=== PATIENT | female | born 1940 | race Two or more races ===

== ENCOUNTER 2018-06-04 17:26 | Emergency (ER) | payer MEDICARE, OTHER ==
[~2018-06-04] VITALS: Ht 147.3 cm; Wt 50.8 kg
[2018-06-04 19:03] LABS: Basophils # (auto) 0 uL; Basophils % (auto) 0.4 % (0.0-2.0); Eosinophils # (auto) 0.1 uL; Eosinophils % (auto) 1.1 % (0.0-7.0); Hematocrit 35.6 % (36.0-46.0); Hemoglobin 11.9 g/dL (12.2-16.2); Lymphocytes # (auto) 1.7 uL; Lymphocytes % (auto) 29.7 % (10.0-50.0); Mean Corpuscular Hemoglobin 30.9 pg (28.0-32.0); Mean Corpuscular Hgb Conc. 33.4 g/dL (32.0-36.0); Mean Corpuscular Volume 92.7 fL (80.0-100.0); Monocytes # (auto) 0.4 uL; Monocytes % (auto) 7.5 % (0.0-12.0); Neutrophils # (auto) 3.6 uL; Neutrophils % (auto) 61.3 % (37.0-80.0); Nucleated Red Blood Cells % 0.1 %; Platelet Count (auto) 180 10^3/uL (140-450); Red Blood Cells 3.84 10^6/uL (4.0-5.20); White Blood Cell 5.8 10^3/uL (4.4-10.8)
[2018-06-04 19:18] LABS: Alanine Aminotransferase 23 U/L (13-56); Albumin 3.5 g/dL (3.4-5.0); Anion Gap 8 (5-15); Aspartate Aminotransferase 34 U/L (15-37); BUN/Creatinine Ratio 22.1; Blood Urea Nitrogen 17 mg/dL (7-18); Calcium 9.3 mg/dL (8.5-10.1); Carbon Dioxide 25 mmol/L (21-32); Chloride 104 mmol/L (98-107); GFR African American 93 mL/min; GFR Non-African American 77 mL/min; Glucose 117 mg/dL (74-106); Potassium 4.7 mmol/L (3.5-5.1); Sodium 137 mmol/L (136-145)
[2018-06-04 19:24] LABS: Alkaline Phosphatase 115 U/L (45-117); Bilirubin, Total 0.4 mg/dL (0.2-1.0)
[2018-06-04 21:25] VITALS: BP 113/75
== END 2018-06-04 21:40 | disposition home or self-care (01) ==
LOC: ER 17:26
DX: M19.012 Primary osteoarthritis, left shoulder (principal); E07.9 Disorder of thyroid, unspecified
CPT/HCPCS: 36415; 71046; 73030; 80053; 83880; 84484; 85025; 93005

== ENCOUNTER → 2018-12-03 | Outpatient (CLI) | payer MEDICARE, OTHER | END | disposition home or self-care (01) | LOC: Rad HDHVI 15:56 | PROVIDERS: ATTEND Internal Medicine Cardiovascular Disease | DX: I08.3 Combined rheumatic disorders of mitral, aortic and tricuspid valves (principal) | CPT/HCPCS: 93306 ==

== ENCOUNTER → 2018-12-06 | Outpatient (CLI) | payer MEDICARE, OTHER ==
[~2018-12-06] VITALS: Ht 147.3 cm; Wt 48.5 kg
== END | disposition home or self-care (01) ==
LOC: Rad HDHVI 08:47
PROVIDERS: ATTEND Internal Medicine Cardiovascular Disease
DX: Z01.810 Encounter for preprocedural cardiovascular examination (principal); I10 Essential (primary) hypertension; E03.9 Hypothyroidism, unspecified
CPT/HCPCS: 78452; 93017; 96374; A9500

== ENCOUNTER 2018-12-26 11:41 | Inpatient (IN) | payer MEDICARE, OTHER ==
[2018-12-24 13:00] LABS: INR 0.9 (0.9-1.15); Partial Thromboplastin Time 21.3 sec (23.78-33.04); Prothrombin Time 9.7 sec (9.27-12.13)
[2018-12-24 13:07] LABS: Urine Bacteria NONE SEEN /hpf (None Seen); Urine Blood Negative /uL (Negative); Urine Mucus FEW (None Seen); Urine Specific Gravity 1.018 (1.001-1.035); Urine WBC 1 /hpf (0 - 5)
[2018-12-24 13:17] LABS: Potassium 4.2 mmol/L (3.5-5.1)
[2018-12-24 13:28] LABS: Albumin 3.4 g/dL (3.4-5.0); BUN/Creatinine Ratio 22.8; Bilirubin, Total 0.4 mg/dL (0.2-1.0); Calcium 9.4 mg/dL (8.5-10.1); Total Protein 8.3 g/dL (6.4-8.2)
[2018-12-25 13:51] LABS: Basophils # (auto) 0 uL; Basophils % (auto) 0.6 % (0.0-2.0); Eosinophils # (auto) 0.2 uL; Eosinophils % (auto) 3.1 % (0.0-7.0); Hematocrit 37.7 % (36.0-46.0); Hemoglobin 12.5 g/dL (12.2-16.2); Lymphocytes # (auto) 1.7 uL; Lymphocytes % (auto) 23.4 % (10.0-50.0); Mean Corpuscular Hemoglobin 29.9 pg (28.0-32.0); Mean Corpuscular Hgb Conc. 33.1 g/dL (32.0-36.0); Mean Corpuscular Volume 90.4 fL (80.0-100.0); Monocytes # (auto) 0.5 uL; Monocytes % (auto) 7.4 % (0.0-12.0); Neutrophils # (auto) 4.8 uL; Neutrophils % (auto) 65.5 % (37.0-80.0); Nucleated Red Blood Cells % 0.1 %; Platelet Count (auto) 215 10^3/uL (140-450); Red Blood Cells 4.18 10^6/uL (4.0-5.20); Red Cell Distribution Width 14.3 % (11.8-14.3); White Blood Cell 7.4 10^3/uL (4.4-10.8)
[~2018-12-26] VITALS: Ht 149.9 cm; Wt 57.9 kg
[~2018-12-26 11:41] MED LIST: LEVO75TA6 PO; RITU1INJ SC
[2018-12-26] MEDS ORDERED: ceFAZolin 1GM/50ML 50 ML IV ONE (13:26)
[2018-12-26] MEDS ORDERED: LIDOCAINE W/ EPINEPHRINE 1% 20ML VIAL ONE (18:17)
[2018-12-26] MEDS ORDERED: SUCCINYLCHOLINE CHLORIDE 20 MG/ML 10ML VIAL IV ONE (18:18)
[2018-12-26] MEDS ORDERED: MIDAZOLAM HCL 1MG/1ML-2 ML VIAL ONE (18:26)
[2018-12-26] MEDS ORDERED: fentaNYL CITRATE 100 MCG/2 ML VL ONE (18:26)
[2018-12-26] MEDS ORDERED: SODIUM CHLORIDE LOCK 10 ML ONE (18:27)
[2018-12-26] MEDS ORDERED: ROCURONIUM 10MG/ML 10ML VIAL IV ONE (18:27)
[2018-12-26] MEDS ORDERED: ONDANSETRON HCL 4 MG/2 ML VIAL ONE (18:27)
[2018-12-26] MEDS ORDERED: MEPERIDINE HCL (50 MG/ML) 1 ML VIAL ONE (18:27)
[2018-12-26] MEDS ORDERED: KETOROLAC TROMETH 30 MG/ML 1ML VIAL IV ONE (19:00)
[2018-12-26] MEDS ORDERED: METOCLOPRAMIDE HCL 5MG/ml INJ 2ml VIAL IV ONE (19:00)
[2018-12-26] MEDS ORDERED: NEOSTIGMINE 1 MG/ML INJ (10mg/10ML VIAL) ONE (19:09)
[2018-12-26] MEDS ORDERED: KETOROLAC TROMETH 60MG/2ML VIAL IM ONE (19:09)
[2018-12-26] MEDS ORDERED: GLYCOPYRROLATE 0.2 MG/ML 1ML VIAL ONE (19:09)
[2018-12-26] MEDS ORDERED: HYDROmorphone HCL 2 MG/ML VL IV PRN (19:30)
[2018-12-26] MEDS ORDERED: HYDROcodone-ACET 5/325MG TAB PO PRN (20:45)
[2018-12-26] MEDS ORDERED: NITROGLYCERIN 0.4 MG SL TAB SL PRN (20:45)
[2018-12-26] MEDS ORDERED: MORPHINE SULF INJ 2 MG/ML SYRINGE 1ML IV PRN (20:45)
[2018-12-26] MEDS ORDERED: ACETAMINOPHEN 500 MG TAB PO PRN (20:45)
[2018-12-26] MEDS ORDERED: IPRATROPIUM BROM 0.5 MG/2.5ML INH SOL NEB PRN (20:45)
[2018-12-26] MEDS ORDERED: ONDANSETRON HCL 4 MG/2 ML VIAL IV PRN (20:45)
[2018-12-26] MEDS ORDERED: ALBUTEROL SULF 2.5 MG/0.5ML(0.5%) NEB SOLN NEB PRN (20:45)
[2018-12-26] MEDS ORDERED: ceFAZolin 1GM/50ML 50 ML IV SCH ×2 (22:00)
--- NOTE | 2018-12-26 22:04 | NUR ---
Post Op Admit Note JOHNNA ABREU admitted to Telemetry/MS unit as a direct admit post op s/p Laparoscopic Cholecystectomy. Patient oriented to Jef Kothari, primary RN, unit, room, bed, and unit policies regarding patient care and visiting hours. Patient weighed by bedscale and encouraged to call if they need something. All questions and concerns addressed, patient verbalized understanding.
[2018-12-26 22:10] VITALS: BP 117/55
[2018-12-26] MEDS: D5W/SOD CHL 0.45%/KCL 20MEQ 1,000 ML IV SCH (22:30)
[2018-12-26 23:51] VITALS: BP 117/55
[2018-12-27] MEDS: MORPHINE SULF INJ 2 MG/ML SYRINGE 1ML IV PRN ×6 (00:01→22:27)
[2018-12-27] MEDS: ceFAZolin 1GM/50ML 50 ML IV SCH ×2 (03:08→10:32)
[2018-12-27 05:02] VITALS: BP 100/50
[2018-12-27 06:27] LABS: Basophils # (auto) 0 uL; Basophils % (auto) 0.3 % (0.0-2.0); Eosinophils # (auto) 0 uL; Eosinophils % (auto) 0.6 % (0.0-7.0); Hematocrit 30.6 % (36.0-46.0); Hemoglobin 10.2 g/dL (12.2-16.2); Lymphocytes # (auto) 0.8 uL; Lymphocytes % (auto) 10.9 % (10.0-50.0); Mean Corpuscular Hemoglobin 30.4 pg (28.0-32.0); Mean Corpuscular Hgb Conc. 33.3 g/dL (32.0-36.0); Mean Corpuscular Volume 91.4 fL (80.0-100.0); Monocytes # (auto) 0.5 uL; Monocytes % (auto) 7.2 % (0.0-12.0); Neutrophils # (auto) 5.7 uL; Platelet Count (auto) 154 10^3/uL (140-450); Red Blood Cells 3.35 10^6/uL (4.0-5.20); Red Cell Distribution Width 14.7 % (11.8-14.3); White Blood Cell 7.1 10^3/uL (4.4-10.8)
[2018-12-27 06:42] LABS: BUN/Creatinine Ratio 13.7; Calcium 7.7 mg/dL (8.5-10.1); Potassium 3.4 mmol/L (3.5-5.1)
--- NOTE | 2018-12-27 07:28 | NUR ---
Patient still with severe post op pain, medication given. No urine output, bladder not distended, patient states no urge to urinate. Endorsed care to Suzy SCHMITT.
[2018-12-27 08:00] VITALS: BP 105/55
[2018-12-27] MEDS: D5W/SOD CHL 0.45%/KCL 20MEQ 1,000 ML IV SCH ×2 (08:50→22:10)
--- NOTE | 2018-12-27 08:52 | NUR ---
Respiratory note: ASSESSED PT FOR PRN TX PT WAS AWAKE AND ALERT ON A PHONE CALL, NO RESP DISTRESS NOTED. HR 71, RR 16, SPO2 91% ON ROOM AIR. BS ARE DIMINISHED. PT KNOWS TO HAVE RT PAGED IF TX IS NEEDED.
--- NOTE | 2018-12-27 11:00 | NUR ---
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
[2018-12-27] MEDS: ONDANSETRON HCL 4 MG/2 ML VIAL IV PRN ×2 (11:05→23:50)
[2018-12-27 11:12] LABS: Albumin 2.5 g/dL (3.4-5.0); Bilirubin, Direct 0.2 mg/dL (0-0.2)
[2018-12-27 11:15] LABS: Bilirubin, Total 0.6 mg/dL (0.2-1.0); Total Protein 6.5 g/dL (6.4-8.2)
[2018-12-27 11:19] LABS: Urine Bacteria FEW /hpf (None Seen); Urine Blood Negative /uL (Negative); Urine Mucus FEW (None Seen); Urine Specific Gravity 1.022 (1.001-1.035); Urine WBC 12 /hpf (0 - 5)
[2018-12-27 12:00] VITALS: BP 142/74
[2018-12-27] MEDS ORDERED: FLEET MINERAL OIL ENEMA 133 ML PR ONE (14:15)
--- NOTE | 2018-12-27 14:15 | NUR ---
IV insertion IV access obtained, via clean sterile technique by inserting 20 gauge catheter at after attempt(s). IV secured properly. No trauma to site. Patient tolerated well.
--- NOTE | 2018-12-27 15:00 | NUR ---
Patient walks with PT, tolerated well.
[2018-12-27 17:00] VITALS: BP 134/61
--- NOTE | 2018-12-27 19:20 | NUR ---
Opening Shift Note Assumed care of patient, awake and alert. Bed side report with day RN Suzy. family member at bedside. No S/S of distress/SOB or pain. Instructed on POC and to call for assist PRN, will continue to monitor for changes Q1hr and PRN. bed locked and in lowest position, call light within reach. Informed to use call light if needs assistance with going to the restroom.
[2018-12-27 21:29] VITALS: BP 154/82
--- NOTE | 2018-12-27 22:00 | NUR ---
Respiratory note: PT ASSESSED FOR PRN MED NEB TX. PT FOUND ON R/A WITH SPO2 OF 80%. PT PLACED ON 3L N/C. SPO2 NOW 94%. PT DENIES ANY SOB AT THIS TIME. B/S ARE CLEAR/DIM. PT INFORMED TO KEEP 02 ON AND TO HAVE RT PAGED IF NEEDED.
[2018-12-28 05:22] VITALS: BP 133/75
[2018-12-28 05:24] VITALS: BP 126/63
[2018-12-28 06:41] LABS: Basophils # (auto) 0 uL; Basophils % (auto) 0.3 % (0.0-2.0); Eosinophils # (auto) 0.1 uL; Eosinophils % (auto) 0.9 % (0.0-7.0); Hematocrit 35.5 % (36.0-46.0); Hemoglobin 11.5 g/dL (12.2-16.2); Lymphocytes # (auto) 0.8 uL; Lymphocytes % (auto) 13.8 % (10.0-50.0); Mean Corpuscular Hgb Conc. 32.4 g/dL (32.0-36.0); Mean Corpuscular Volume 92.6 fL (80.0-100.0); Monocytes # (auto) 0.4 uL; Monocytes % (auto) 6.4 % (0.0-12.0); Neutrophils # (auto) 4.6 uL; Neutrophils % (auto) 78.6 % (37.0-80.0); Platelet Count (auto) 180 10^3/uL (140-450); Red Blood Cells 3.83 10^6/uL (4.0-5.20); Red Cell Distribution Width 14.9 % (11.8-14.3); White Blood Cell 5.9 10^3/uL (4.4-10.8)
[2018-12-28 06:49] LABS: Albumin 2.7 g/dL (3.4-5.0); BUN/Creatinine Ratio 4.1; Calcium 8.2 mg/dL (8.5-10.1); Potassium 3.6 mmol/L (3.5-5.1)
[2018-12-28 06:51] LABS: Bilirubin, Total 1.2 mg/dL (0.2-1.0); Total Protein 7.2 g/dL (6.4-8.2)
--- NOTE | 2018-12-28 07:45 | NUR ---
OPENING SHIFT PATIENT IN BED RESTING. NO S/S OF DISTRESS, SOB, OR PAIN. RESPIRATIONS EVEN AND UNLABORED. 3 INCISIONS TO ABDOMEN WITH DRESSINGS CLEAN, DRY, AND INTACT. ABDOMINAL BINDER IN PLACE. DISCUSSED POC WITH PATIENT. PATIENT VERBALIZED UNDERSTANDING. BED IS IN LOWEST POSITION , SIDE RAILS UP X2, AND CALL LIGHT WITHIN REACH. WILL CONTINUE TO MONITOR Q1 HOUR AND PRN.
[2018-12-28 08:36] VITALS: BP 140/67
--- NOTE | 2018-12-28 10:45 | NUR ---
Respiratory note: PT ASSESSED FOR PRN MEDNEB TX. NO TX INDICATED AT THIS TIME. SPO2 92% ON RA HR 79 RR 18 B/S CLEAR/DIM. PT AWARE TO HAVE RT PAGED IF THEY BECOME SOB.
[2018-12-28 12:56] VITALS: BP 144/74
--- NOTE | 2018-12-28 13:18 | NUR ---
ORDER AND CLINICALS FAXED TO [facility]. START OF CARE WILL BE 24 TO 48 HOURS AFTER DISCHARGE. PHONE NUMBER IS [phone]
[2018-12-28] MEDS: D5W/SOD CHL 0.45%/KCL 20MEQ 1,000 ML IV SCH (14:30)
--- NOTE | 2018-12-28 16:37 | NUR ---
REFUSED VITALS PT REFUSED 1700 VITALS, LEISA SCHMITT AWARE.
[2018-12-28 16:51] VITALS: BP 140/67
--- NOTE | 2018-12-28 17:50 | NUR ---
DISCHARGE Discharge instructions given as ordered. Encourage to follow up with PCP as instructed. All questions and concerns addressed. Patient verbalized understanding. IV removed with catheter intact, pressure dressing applied. Patient taken to vehicle via wheelchair with all personal belongings, accompanied by staff and family member. No distress noted at time of departure.
== END 2018-12-28 17:50 | disposition home or self-care (01) | DRG 418 ==
LOC: SUR 11:41 → MERGE 22:04 → WEST WING 22:04 → TELE-WESTW 23:03 → WEST WING 12-27 02:28
PROVIDERS: ADMIT Surgery; ATTEND Internal Medicine
PROC: 0FT44ZZ Resection of Gallbladder, Percutaneous Endoscopic Approach (ICD-10-PCS; principal; 2018-12-26 18:26)
DX: K80.10 Calculus of gallbladder with chronic cholecystitis without obstruction (principal); E44.0 Moderate protein-calorie malnutrition; E03.9 Hypothyroidism, unspecified; E66.9 Obesity, unspecified; K82.8 Other specified diseases of gallbladder; M06.9 Rheumatoid arthritis, unspecified; Z68.25 Body mass index [BMI] 25.0-25.9, adult
CPT/HCPCS: 36415; 80048; 80053; 80061; 80076; 81001; 82247; 83036; 84439; 84443; 85025; 85610; 85730; 86850; 86900; 86901; 97163; A6257; G0378; J0330; J0690; J1885; J2250; J2405

== ENCOUNTER → 2019-02-18 | Outpatient (CLI) | payer BC, MEDICARE ==
[2019-02-18 12:44] LABS: Basophils # (auto) 0 uL; Basophils % (auto) 0.4 % (0.0-2.0); Eosinophils # (auto) 0.1 uL; Eosinophils % (auto) 2.2 % (0.0-7.0); Hematocrit 39.4 % (36.0-46.0); Hemoglobin 13.1 g/dL (12.2-16.2); Lymphocytes # (auto) 1.3 uL; Mean Corpuscular Hemoglobin 30.2 pg (28.0-32.0); Mean Corpuscular Hgb Conc. 33.2 g/dL (32.0-36.0); Mean Corpuscular Volume 91.1 fL (80.0-100.0); Monocytes # (auto) 0.4 uL; Monocytes % (auto) 8.8 % (0.0-12.0); Neutrophils # (auto) 2.8 uL; Neutrophils % (auto) 60.6 % (37.0-80.0); Nucleated Red Blood Cells % 0.1 %; Platelet Count (auto) 179 10^3/uL (140-450); Red Blood Cells 4.33 10^6/uL (4.0-5.20); Red Cell Distribution Width 13.9 % (11.8-14.3); White Blood Cell 4.6 10^3/uL (4.4-10.8)
[2019-02-18 12:52] LABS: Urine Blood Negative /uL (Negative); Urine Specific Gravity 1.011 (1.001-1.035)
[2019-02-18 12:57] LABS: Albumin 3.7 g/dL (3.4-5.0); Potassium 3.7 mmol/L (3.5-5.1)
[2019-02-18 13:04] LABS: BUN/Creatinine Ratio 28.4; Bilirubin, Total 0.5 mg/dL (0.2-1.0); Calcium 9.1 mg/dL (8.5-10.1)
[2019-02-18 13:07] LABS: Free T4 (Free Thyroxine) 1.08 ng/dL (0.89-1.76)
== END | disposition home or self-care (01) ==
LOC: LAB 08:05
PROVIDERS: ATTEND Internal Medicine Cardiovascular Disease
DX: E55.9 Vitamin D deficiency, unspecified (principal); E03.9 Hypothyroidism, unspecified; D51.9 Vitamin B12 deficiency anemia, unspecified; N39.0 Urinary tract infection, site not specified; Z79.899 Other long term (current) drug therapy
CPT/HCPCS: 36415; 80053; 80061; 81003; 82306; 82607; 83036; 84439; 84443; 85025

== ENCOUNTER → 2019-03-15 | Outpatient (CLI) | payer MEDICARE | END | disposition home or self-care (01) | LOC: LAB 11:25 | PROVIDERS: ATTEND Internal Medicine Cardiovascular Disease | DX: E03.9 Hypothyroidism, unspecified (principal) | CPT/HCPCS: 36415; 84439; 84443 ==

== ENCOUNTER → 2019-05-27 | Outpatient (CLI) | payer MEDICARE, BC ==
[~2019-05-27] MED LIST changes: +METO5TAB2 PO; +OMEP20TA PO; +PANC3600 PO; +PIO30T PO; +RANI150C11 PO
[2019-05-27 12:11] LABS: Urine Blood Negative /uL (Negative); Urine Specific Gravity 1.014 (1.001-1.035)
[2019-05-27 12:16] LABS: Hematocrit 37.7 % (36.0-46.0); Hemoglobin 12.7 g/dL (12.2-16.2); Mean Corpuscular Hemoglobin 32.2 pg (28.0-32.0); Mean Corpuscular Hgb Conc. 33.6 g/dL (32.0-36.0); Mean Corpuscular Volume 95.8 fL (80.0-100.0); Platelet Count (auto) 176 10^3/uL (140-450); Red Blood Cells 3.94 10^6/uL (4.0-5.20); Red Cell Distribution Width 17.1 % (11.8-14.3); White Blood Cell 3.6 10^3/uL (4.4-10.8)
[2019-05-27 12:19] LABS: Basophils % (manual) 0 (0.0-2.0); Blast Cells 0; Metamyelocytes % 0; Myelocytes % 0; Promyelocytes % 0; Reactive Lymphocytes 0
[2019-05-27 12:38] LABS: Free T4 (Free Thyroxine) 1.68 ng/dL (0.89-1.76)
[2019-05-27 13:20] LABS: Potassium 3.4 mmol/L (3.5-5.1)
[2019-05-27 13:39] LABS: Albumin 3.2 g/dL (3.4-5.0); Bilirubin, Total 6.3 mg/dL (0.2-1.0); Calcium 9.3 mg/dL (8.5-10.1); Total Protein 8.1 g/dL (6.4-8.2)
[2019-05-27 14:33] LABS: Band Neutrophils % (manual) 1; Eosinophils % (manual) 3 (0-7); Lymphocytes % (manual) 28 (10.0-50.0); Monocytes % (manual) 4 (0-12)
== END | disposition home or self-care (01) ==
LOC: LAB 08:05
PROVIDERS: ATTEND Internal Medicine
DX: E11.9 Type 2 diabetes mellitus without complications (principal); K90.9 Intestinal malabsorption, unspecified; N39.0 Urinary tract infection, site not specified; D51.9 Vitamin B12 deficiency anemia, unspecified; Z79.899 Other long term (current) drug therapy
CPT/HCPCS: 36415; 80053; 80061; 81003; 82306; 82607; 83036; 84439; 84443; 85007; 85027; 87086

== ENCOUNTER 2019-05-30 09:44 | Inpatient (IN) | payer MEDICARE, OTHER ==
[~2019-05-30] VITALS: Ht 147.3 cm; Wt 48.7 kg
[~2019-05-30 09:44] MED LIST changes: -METO5TAB2 PO; -OMEP20TA PO; -PANC3600 PO; -PIO30T PO; -RANI150C11 PO
[2019-05-30 11:04] VITALS: BP 144/66
[2019-05-30] MEDS ORDERED: SODIUM CHLORIDE 0.9% 1,000 ML IV SCH (11:15)
[2019-05-30] MEDS ORDERED: DEXTROSE (50%) 50ML SYRG IV PRN (11:15)
[2019-05-30 12:00] VITALS: BP 144/79
[2019-05-30] MEDS: InsuLIN REG 1unit/0.01ml Soln (100units/ml) SC SCH ×3 (12:00→20:00)
[2019-05-30 12:12] LABS: Basophils # (auto) 0 uL; Basophils % (auto) 0.6 % (0.0-2.0); Eosinophils # (auto) 0.1 uL; Eosinophils % (auto) 1.2 % (0.0-7.0); Hematocrit 34.5 % (36.0-46.0); Hemoglobin 11.6 g/dL (12.2-16.2); Lymphocytes # (auto) 0.9 uL; Mean Corpuscular Hemoglobin 32.1 pg (28.0-32.0); Mean Corpuscular Hgb Conc. 33.7 g/dL (32.0-36.0); Mean Corpuscular Volume 95.4 fL (80.0-100.0); Monocytes # (auto) 0.4 uL; Monocytes % (auto) 10.3 % (0.0-12.0); Neutrophils # (auto) 2.9 uL; Neutrophils % (auto) 66.9 % (37.0-80.0); Platelet Count (auto) 180 10^3/uL (140-450); Red Blood Cells 3.62 10^6/uL (4.0-5.20); Red Cell Distribution Width 17.1 % (11.8-14.3); White Blood Cell 4.3 10^3/uL (4.4-10.8)
[2019-05-30] MEDS ORDERED: OMEP20TA PO (12:14)
[2019-05-30] MEDS ORDERED: PANC3600 PO (12:14)
[2019-05-30] MEDS ORDERED: METO5TAB2 PO (12:14)
[2019-05-30] MEDS ORDERED: PIO30T PO (12:14)
[2019-05-30] MEDS ORDERED: RANI150C11 PO (12:14)
[2019-05-30] MEDS: ACCU-CHEK COMFORT CURVE STRIP VI SCH ×3 (12:14→21:29)
[2019-05-30] MEDS: SODIUM CHLORIDE 0.9% 1,000 ML IV SCH ×2 (12:15→21:29)
[2019-05-30 12:20] LABS: Albumin 2.9 g/dL (3.4-5.0); Calcium 8.7 mg/dL (8.5-10.1); Potassium 3.1 mmol/L (3.5-5.1)
[2019-05-30 12:23] LABS: Bilirubin, Total 8.5 mg/dL (0.2-1.0); Total Protein 7.3 g/dL (6.4-8.2)
[2019-05-30] MEDS ORDERED: IOHEXOL 300 MG/ML 100ML BOTTLE IJ ONE (12:31)
[2019-05-30 13:44] LABS: Hepatitis A Ab IgM Negative; Hepatitis B Core IgM Negative; Hepatitis B Surface Antigen Negative (Negative); Hepatitis C Antibody Negative (Negative)
[2019-05-30 14:24] LABS: INR < 0.93 (0.9-1.15)
[2019-05-30] MEDS ORDERED: POTASSIUM CHL 20 Meq TABLET PO ONE (14:30)
[2019-05-30 17:00] VITALS: BP 151/79
[2019-05-30] MEDS: HYDROmorphone HCL 2 MG/ML VL IV PRN (21:30)
[2019-05-30 21:53] VITALS: BP 111/60
[2019-05-31] MEDS: InsuLIN REG 1unit/0.01ml Soln (100units/ml) SC SCH ×6 (04:00→20:46)
[2019-05-31 05:00] VITALS: BP 121/64
[2019-05-31] MEDS: ACCU-CHEK COMFORT CURVE STRIP VI SCH ×6 (05:30→20:47)
[2019-05-31] MEDS: LEVOTHYROXINE SODIUM 100 MCG TAB PO SCH (05:37)
[2019-05-31 06:11] LABS: Basophils # (auto) 0 uL; Basophils % (auto) 0.3 % (0.0-2.0); Eosinophils # (auto) 0 uL; Eosinophils % (auto) 0.5 % (0.0-7.0); Hematocrit 31.9 % (36.0-46.0); Hemoglobin 10.7 g/dL (12.2-16.2); Lymphocytes # (auto) 0.8 uL; Lymphocytes % (auto) 17.8 % (10.0-50.0); Mean Corpuscular Hgb Conc. 33.5 g/dL (32.0-36.0); Mean Corpuscular Volume 95.4 fL (80.0-100.0); Monocytes # (auto) 0.4 uL; Monocytes % (auto) 8.2 % (0.0-12.0); Neutrophils # (auto) 3.2 uL; Neutrophils % (auto) 73.2 % (37.0-80.0); Platelet Count (auto) 169 10^3/uL (140-450); Red Blood Cells 3.35 10^6/uL (4.0-5.20); Red Cell Distribution Width 17.2 % (11.8-14.3); White Blood Cell 4.3 10^3/uL (4.4-10.8)
[2019-05-31 06:35] LABS: Albumin 2.4 g/dL (3.4-5.0); Calcium 8.2 mg/dL (8.5-10.1); Potassium 3.5 mmol/L (3.5-5.1)
[2019-05-31 06:39] LABS: BUN/Creatinine Ratio 17.5; Bilirubin, Total 9.9 mg/dL (0.2-1.0); Total Protein 6.4 g/dL (6.4-8.2)
--- NOTE | 2019-05-31 07:15 | NUR ---
Opening Note Received report from police shift commander RN. Patient is awake, alert and oriented x4. Patient denies pain at this time. Patient is on room air, respirations even and unlabored. Reviewed plan of care with patient, patient verbalized understanding. Patient is NPO for ERCP today. Bed in low and locked position, call light within reach. Will continue to monitor Q1 hour and PRN.
--- NOTE | 2019-05-31 08:35 | NUR ---
ERCP Call from OR, doctor is unable to perform ERCP today, patient is now scheduled to have procedure tomorrow morning at 0800. New orders received to place patient on clear liquids today and NPO after midnight. Will implement new orders.
[2019-05-31 08:57] VITALS: BP 125/65
[2019-05-31] MEDS: ONDANSETRON HCL 4 MG/2 ML VIAL IV PRN ×2 (08:59→20:47)
[2019-05-31] MEDS: HYDROmorphone HCL 2 MG/ML VL IV PRN ×2 (09:00→20:47)
--- NOTE | 2019-05-31 09:00 | NUR ---
Pain Patient complains of abdominal pain 5/10 and is requesting pain medication. Will medicate per orders.
[2019-05-31] MEDS: SODIUM CHLORIDE 0.9% 1,000 ML IV SCH ×2 (09:06→17:37)
--- NOTE | 2019-05-31 11:40 | NUR ---
Estimated needs based on CBW 46.6 kg-wt gain promotion, history of significant weight loss 8181-8443 kcal (30-35 kcal/kg) 55-69 g protein (1.2-1.5 g/kg) Addendum: 05/31/19 at [address] Amended: Links added.
[2019-05-31 13:02] VITALS: BP 110/60
--- NOTE | 2019-05-31 15:40 | NUR ---
Dr. Dhillon at bedside Reviewing plan of care with patient. New orders received for pain medication. Will implement new orders.
[2019-05-31 16:53] VITALS: BP 112/60
[2019-05-31] MEDS: KETOROLAC TROMETH 30 MG/ML 1ML VIAL IV PRN (17:34)
--- NOTE | 2019-05-31 19:25 | NUR ---
Closing Note Report given to maintenance supervisor 2nd shift RN. No signs or symptoms of distress noted at this time.
--- NOTE | 2019-05-31 20:17 | NUR ---
Pt is c/o pain 06/18 and states that the Toradol did not help with the pain. Pt further states that , " I would rather have the vomiting with the narcotics than to feel this pain." " Can I please have the other pain medicine?" Explained to pt that Zofran can be given with the Dilaudid that is ordered to help with n/v and pt verbalizes understanding.
[2019-05-31 21:46] VITALS: BP 88/49
[2019-06-01] MEDS: ACCU-CHEK COMFORT CURVE STRIP VI SCH ×7 (01:05→23:31)
[2019-06-01] MEDS: InsuLIN REG 1unit/0.01ml Soln (100units/ml) SC SCH ×7 (04:00→23:31)
[2019-06-01] MEDS: SODIUM CHLORIDE 0.9% 1,000 ML IV SCH ×2 (05:03→15:43)
[2019-06-01 05:08] VITALS: BP 102/46
[2019-06-01] MEDS: LEVOTHYROXINE SODIUM 100 MCG TAB PO SCH (05:37)
--- NOTE | 2019-06-01 07:15 | NUR ---
Opening Note Received report from maintenance technician 2nd shift RN. Patient is awake, alert and oriented x4. No signs or symptoms of distress noted at this time. Patient is on room air, respirations even and unlabored. Patient is NPO, patient is scheduled for ERCP today. Reviewed plan of care with patient, patient verbalized understanding. Bed in low and locked position, call light within reach. Will continue to monitor Q1 hour and PRN.
--- NOTE | 2019-06-01 08:11 | NUR ---
Patient taken down to pre-op for ERCP Family at bedside.
[2019-06-01] MEDS ORDERED: IOHEXOL 300 MG/ML 100ML BOTTLE IJ ONE (08:20)
[2019-06-01] MEDS ORDERED: MIDAZOLAM HCL 1MG/1ML-2 ML VIAL ONE (08:49)
[2019-06-01] MEDS ORDERED: ONDANSETRON HCL 4 MG/2 ML VIAL ONE (08:49)
[2019-06-01] MEDS ORDERED: PROPOFOL 10 MG/ML 20 ML IV ONE (08:49)
[2019-06-01] MEDS ORDERED: DexAMETHasone SOD PHOS 10MG/1ML VIAL INJ ONE (08:49)
[2019-06-01] MEDS ORDERED: MEPERIDINE HCL (25 MG/ML) 1ML VIAL ONE (08:49)
[2019-06-01] MEDS ORDERED: KETAMINE HCL 1 ML ONE (08:50)
[2019-06-01 09:00] VITALS: BP 116/61
[2019-06-01] MEDS: KETOROLAC TROMETH 30 MG/ML 1ML VIAL IV PRN ×2 (10:35→16:32)
--- NOTE | 2019-06-01 11:55 | NUR ---
Patient back to room Patient is resting with eyes closed, easy to wake by calling name. Vital signs assessed, within normal limits. Patient is on 2L NC, respirations even and unlabored. Bed alarm on for safety. Bed in low and locked position, call light within reach. Family at bedside. Will continue to monitor Q1 hour and PRN.
--- NOTE | 2019-06-01 12:30 | NUR ---
IV Removed IV removed from right wrist. Catheter intact, pressure dressing applied, patient tolerated well. Will continue to monitor Q1 hour and PRN.
[2019-06-01 13:00] VITALS: BP 137/58
[2019-06-01 16:50] VITALS: BP 140/61
--- NOTE | 2019-06-01 19:15 | NUR ---
Closing Note Report given to night shift manager RN. Patient resting in bed with eyes closed, no signs or symptoms of distress noted at this time.
--- NOTE | 2019-06-01 19:37 | NUR ---
OPENING NOTE RECEIVED REPORT FROM DAYSHIFT RN. ASSUMING ROLE OF CARE OF PATIENT AT THIS TIME. PATIENT SHOWING NO SIGN OF DISTRESS, SHORTNESS OF BREATH, AND PATIENT DENIES ANY PAIN AT THIS TIME. PATIENT EDUCATED ON PLAN OF CARE FOR THE NIGHT AND PATIENT VERBALIZED UNDERSTANDING. PATIENT'S BS CHECKED AT 217. PER PATIENT, THEY DID NOT HAVE VERY MUCH FOR DINNER AND WOULD LIKE TO HOLD OFF ON INSULIN RECHECK AT 0000. PATIENT EDUCATED ON NECESSITY OF INSULIN AND POSSIBLE COMPLICATIONS. PATIENT VERBALIZED UNDERSTANDING. BED LOWERED, CALL LIGHT WITHIN REACH, AND PATIENT WILL BE ROUNDED ON EVERY HOUR AND NEEDED.
[2019-06-01 22:00] VITALS: BP 151/69
[2019-06-01] MEDS: ONDANSETRON HCL 4 MG/2 ML VIAL IV PRN (22:12)
[2019-06-01] MEDS: HYDROmorphone HCL 2 MG/ML VL IV PRN (22:12)
[2019-06-02] MEDS: SODIUM CHLORIDE 0.9% 1,000 ML IV SCH ×4 (00:15→23:44)
[2019-06-02] MEDS: ACCU-CHEK COMFORT CURVE STRIP VI SCH ×5 (03:36→20:19)
[2019-06-02] MEDS: InsuLIN REG 1unit/0.01ml Soln (100units/ml) SC SCH ×5 (03:37→20:22)
[2019-06-02 05:40] VITALS: BP 117/62
[2019-06-02] MEDS: LEVOTHYROXINE SODIUM 100 MCG TAB PO SCH (06:17)
[2019-06-02] MEDS: ONDANSETRON HCL 4 MG/2 ML VIAL IV PRN ×3 (06:18→23:44)
[2019-06-02] MEDS: HYDROmorphone HCL 2 MG/ML VL IV PRN ×3 (06:18→23:44)
--- NOTE | 2019-06-02 07:15 | NUR ---
Opening Note Received report from retail marketing coordinator RN. Patient is awake, alert and oriented. No signs or symptoms of distress noted at this time. Patient denies pain at this time. Patient is on room air, respirations even and unlabored. Reviewed plan of care with patient, patient verbalized understanding. Bed in low and locked position, call light within reach. Will continue to monitor Q1 hour and PRN.
[2019-06-02 07:19] LABS: Chloride 103 mmol/L (98-107); Potassium 3.4 mmol/L (3.5-5.1); Sodium 136 mmol/L (136-145)
[2019-06-02 07:28] LABS: Alanine Aminotransferase 76 U/L (13-56); Albumin 2.3 g/dL (3.4-5.0); Alkaline Phosphatase 380 U/L (45-117); Anion Gap 9 (5-15); Aspartate Aminotransferase 77 U/L (15-37); BUN/Creatinine Ratio 21.9; Bilirubin, Total 13.3 mg/dL (0.2-1.0); Blood Urea Nitrogen 16 mg/dL (7-18); Calcium 8.4 mg/dL (8.5-10.1); Carbon Dioxide 24 mmol/L (21-32); GFR African American 99 mL/min; GFR Non-African American 82 mL/min; Glucose 180 mg/dL (74-106); Lipase < 10 U/L (73-393); Total Protein 6.3 g/dL (6.4-8.2)
[2019-06-02] MEDS: KETOROLAC TROMETH 30 MG/ML 1ML VIAL IV PRN ×2 (08:42→21:00)
[2019-06-02 09:00] VITALS: BP 118/62
--- NOTE | 2019-06-02 12:23 | NUR ---
Nutrition Follow-up Notes Wt. 48.2 kg Pt. continues to endorse abdominal pain and loss of appetite associated with nausea. States that the nausea is related to her medical conditions and possibly the medications she is taking. Diet has been advanced to full liquid diet, with fair tolerance, and documented PO intake 25-50% x 3 days. Est. Needs (Based on previous assessment): Recalculate PRN Estimated needs based on CBW 46.6 kg-wt gain promotion, history of significant weight loss 8022-1019 kcal (30-35 kcal/kg) 55-69 g protein (1.2-1.5 g/kg) Labs: K 3.4L, Glu 180H Skin: Otoniel 20, low risk GI: BM x 1 yesterday 06/01 PES: Unintentional weight loss r/t GI dysfunction, chronic and acute medical conditions aeb pt. with N/V, abdominal pain, PO intake <75% needs, and reported significant, unintentional weight loss 20-25# x 6 months (20%). (ongoing) Plan of care: Monitor GI function, weights, PO intake/tolerance, labs, skin. F/U HR 2-3 days. Recommendations: 1) Continue full liquid diet and advance as medically able. 2) Consider adding Ensure Enlive TID with meals for supplementation, as pt. PO intake meeting <75% estimated needs. 3) Consider a MVI QD for supplementation
[2019-06-02 13:00] VITALS: BP 117/63
[2019-06-02 17:21] VITALS: BP 119/56
--- NOTE | 2019-06-02 19:20 | NUR ---
Closing Note Report given to recreation therapist RN. No signs or symptoms of distress noted at this time.
--- NOTE | 2019-06-02 21:30 | NUR ---
Patient c/o chest pain 06/18, described as pressure, vital signs checked, BP is 151/63, HR - 81, O2sat - 97% on 4L O2. EKG done and showed NSR. After EKG was done patient stated, pain is mostly felt on the epigastric area and radiating to the back. Toradol IV PRN given as ordered with some relief, discussed plan of care for pain management and patient agreed with alternating dilaudid IV and Toradol as needed. Will keep monitoring.
[2019-06-02 22:00] VITALS: BP 137/80
[2019-06-03] MEDS: ACCU-CHEK COMFORT CURVE STRIP VI SCH ×7 (00:04→23:33)
[2019-06-03] MEDS: InsuLIN REG 1unit/0.01ml Soln (100units/ml) SC SCH ×7 (04:00→23:33)
[2019-06-03 05:00] VITALS: BP 130/62
[2019-06-03] MEDS: LEVOTHYROXINE SODIUM 100 MCG TAB PO SCH (06:35)
[2019-06-03 07:30] VITALS: BP 137/72
--- NOTE | 2019-06-03 07:30 | NUR ---
Opening Note Received report from warehouse supervisor 3rd shift RN. Patient is awake, alert and oriented X4. No signs or symptoms of distress noted at this time. Patient denies states upper epigastric pain 7/10 and is requesting pain medications. Will medicate per orders. Patient is on room air, respirations even and unlabored. Reviewed plan of care with patient, patient verbalized understanding. Bed in low and locked position, call light within reach. Will continue to monitor Q1 hour and PRN.
[2019-06-03 07:38] LABS: Potassium 3.2 mmol/L (3.5-5.1)
[2019-06-03 07:42] LABS: BUN/Creatinine Ratio 16.9; Bilirubin, Total 13.1 mg/dL (0.2-1.0); Total Protein 5.6 g/dL (6.4-8.2)
[2019-06-03] MEDS: HYDROmorphone HCL 2 MG/ML VL IV PRN ×2 (08:18→22:31)
--- NOTE | 2019-06-03 08:20 | NUR ---
Pain Patient complains of epigastric pain 7/10 will medicate per orders. Will continue to monitor Q1 hour and PRN.
[2019-06-03 12:00] VITALS: BP 132/64
[2019-06-03] MEDS: SODIUM CHLORIDE 0.9% 1,000 ML IV SCH ×2 (16:15→20:12)
[2019-06-03 17:28] VITALS: BP 146/79
--- NOTE | 2019-06-03 19:20 | NUR ---
Closing Note Report given to date night sitter RN. No signs or symptoms of distress noted at this time.
[2019-06-03] MEDS: KETOROLAC TROMETH 30 MG/ML 1ML VIAL IV PRN (20:18)
[2019-06-03 21:30] VITALS: BP 158/71
[2019-06-03] MEDS: ONDANSETRON HCL 4 MG/2 ML VIAL IV PRN (22:31)
[2019-06-04] MEDS: InsuLIN REG 1unit/0.01ml Soln (100units/ml) SC SCH ×5 (04:00→20:55)
[2019-06-04] MEDS: ACCU-CHEK COMFORT CURVE STRIP VI SCH ×5 (04:24→20:50)
[2019-06-04 04:48] VITALS: BP 138/65
[2019-06-04 05:50] LABS: % Iron Saturation 23.2 % (15-50)
[2019-06-04] MEDS: LEVOTHYROXINE SODIUM 100 MCG TAB PO SCH (06:08)
[2019-06-04 06:35] LABS: Ferritin 177.4 ng/mL (10-322); Folate (Folic Acid) 16.26 ng/mL (5.38-24)
[2019-06-04 09:00] VITALS: BP 132/63
--- NOTE | 2019-06-04 09:00 | NUR ---
Opening Shift Note Assumed care of patient, awake and alert. Respiratory even and unlabored. No S/S of distress/SOB or pain. Skin is warm and dry to touch, no s/s of hyperglycemia or hypoglycemia noted. Instructed on POC and to call for assist PRN, will continue to monitor for changes Q1hr and PRN.
[2019-06-04] MEDS: ONDANSETRON HCL 4 MG/2 ML VIAL IV PRN ×2 (09:48→20:50)
[2019-06-04] MEDS: KETOROLAC TROMETH 30 MG/ML 1ML VIAL IV PRN ×2 (09:48→18:54)
--- NOTE | 2019-06-04 11:34 | NUR ---
Dr. Dhillon paged regarding patient would like to talk to Doctor.
--- NOTE | 2019-06-04 11:35 | NUR ---
Received a call from Dr. Dhillon, will come to talk to patient today.
[2019-06-04 13:00] VITALS: BP 150/73
[2019-06-04 14:24] LABS: Albumin 2.2 g/dL (3.4-5.0); BUN/Creatinine Ratio 6.8; Calcium 7.9 mg/dL (8.5-10.1)
[2019-06-04 14:35] LABS: Bilirubin, Total 15.2 mg/dL (0.2-1.0); Total Protein 6.4 g/dL (6.4-8.2)
[2019-06-04 14:44] LABS: Potassium 2.4 mmol/L (3.5-5.1)
--- NOTE | 2019-06-04 14:45 | NUR ---
Received a call from [facility], Dr. Alejo wong , awaiting to call back.
--- NOTE | 2019-06-04 15:07 | NUR ---
assessment Patient is a 78 year old female who is alert and oriented. Patients cognitive abilities are intact. Prior to admission patient lived home with family and functioned independently. Patient informed me she is able to care for her own ADLs. Per patient she will return home to her prior living arrangements post discharge and family will transport her home. Patient informed me she has a fww, wheelchair, and a cane for home use. Patients PCP is Dr Mathis. Patient informed me she feels safe returning home on discharge. Patient may benefit from home health on discharge. I informed patient she has a right to speak to a social work instructor regarding all care. I informed patient she has a right to participate in any and all discharge planning. Patient is aware of visiting hours on the hospital floor. I informed patient she has a right to privacy. Patient does not have a POA and advanced directive. I have offered patient information on POA and advanced directives. I informed the patient the advantages and benefits of having an Advanced Directive. Patient verbalized understanding and agreed to discharge plan. Addendum: 06/05/19 at 1510 by Darlin BERNARDO Amended: Links added.
[2019-06-04] MEDS: SODIUM CHLORIDE 0.9% 1,000 ML IV SCH ×2 (15:19→21:02)
--- NOTE | 2019-06-04 15:33 | NUR ---
Nutrition Follow-up Notes Wt. 48.2 kg Pt. continues to endorse epigastric abdominal pain and decreased appetite. Documented PO intake 25-50% x 3 days average. +constipation from possibly pain medications and not eating well in the past few days. Est. Needs (Based on previous assessment): Recalculate PRN Estimated needs based on CBW 46.6 kg-wt gain promotion, history of significant weight loss 4693-7196 kcal (30-35 kcal/kg) 55-69 g protein (1.2-1.5 g/kg) Labs: K 3.2L, Ca 8L, AST 78H, ALT 68H, ALB 2L, POC <180 mg/dL Skin: Otoniel 22, low risk GI: Last BM x 1 06/01 PES: Unintentional weight loss r/t GI dysfunction, chronic and acute medical conditions aeb pt. with N/V, abdominal pain, PO intake <75% needs, and reported significant, unintentional weight loss 20-25# x 6 months (20%). (ongoing) Plan of care: Monitor GI function, weights, PO intake/tolerance, labs, skin. F/U HR 2-3 days. Recommendations: 1) Continue full liquid diet and advance as medically able. 2) Consider adding Ensure Enlive TID with meals for supplementation, as pt. PO intake meeting <75% estimated needs. 3) Consider a MVI QD for supplementation 4) Consider stool softener for the constipation
[2019-06-04 17:00] VITALS: BP 148/71
--- NOTE | 2019-06-04 18:13 | NUR ---
Received a call from dr. Dhillon with new orders, noted and carried out.
[2019-06-04] MEDS ORDERED: POTASSIUM CHL 20 Meq TABLET PO ONE (18:15)
--- NOTE | 2019-06-04 19:50 | NUR ---
confirmed with patient that patient is not allergic to hydromorphone - Dilaudid. She does not get any rashes or closing of throat or any type of allergic reaction as stated by patient.
[2019-06-04] MEDS: HYDROmorphone HCL 2 MG/ML VL IV PRN (20:50)
[2019-06-04 22:00] VITALS: BP 139/71
[2019-06-05] MEDS: ACCU-CHEK COMFORT CURVE STRIP VI SCH ×7 (00:16→23:53)
--- NOTE | 2019-06-05 00:44 | NUR ---
Spoke to hospitalist and notified him of patient requesting sleeping aid. Hospitalist provided new order of temazepam 15 mg po hs prn. read back and confirmed. will carry out. Addendum: 06/05/19 at 0055 by Nato Collado RN Dr Dhillon gave ok for temazepam order as ordered by hospitalist kamila.
[2019-06-05] MEDS: TEMAZEPAM 15 MG CAP PO PRN ×2 (00:59→21:50)
[2019-06-05] MEDS: InsuLIN REG 1unit/0.01ml Soln (100units/ml) SC SCH ×7 (04:30→23:53)
[2019-06-05 05:00] VITALS: BP 130/73
[2019-06-05] MEDS: LEVOTHYROXINE SODIUM 100 MCG TAB PO SCH (06:01)
[2019-06-05] MEDS: SODIUM CHLORIDE 0.9% 1,000 ML IV SCH ×2 (06:03→18:26)
[2019-06-05 08:23] VITALS: BP 130/70
--- NOTE | 2019-06-05 08:52 | NUR ---
Opening Shift Note Assumed care of patient, awake and alert. No S/S of distress/SOB or pain. Skin is warm and dry to touch, no s/s of hyperglycemia or hypoglycemia noted. Instructed on POC and to call for assist PRN, will continue to monitor for changes Q1hr and PRN.
--- NOTE | 2019-06-05 10:00 | NUR ---
Dr. Dhillon paged regarding transfer order, awaiting to call back.
--- NOTE | 2019-06-05 10:42 | NUR ---
D/C Planning Per SS consult for advanced directive information. As requested information for Statutory Durable Power of Skein Bander for Health Care was given to Pt at bed side. Pt verbalize and agrees.
--- NOTE | 2019-06-05 11:14 | NUR ---
Dr. Dhillon made aware of patient is requesting to transfer to [facility].
[2019-06-05 14:18] VITALS: BP 138/74
[2019-06-05 15:57] LABS: Hematocrit 32.6 % (36.0-46.0); Hemoglobin 11.6 g/dL (12.2-16.2); Mean Corpuscular Hemoglobin 33.4 pg (28.0-32.0); Mean Corpuscular Hgb Conc. 35.4 g/dL (32.0-36.0); Mean Corpuscular Volume 94.4 fL (80.0-100.0); Platelet Count (auto) 244 10^3/uL (140-450); Red Blood Cells 3.46 10^6/uL (4.0-5.20); Red Cell Distribution Width 17.3 % (11.8-14.3); White Blood Cell 4.5 10^3/uL (4.4-10.8)
[2019-06-05 16:02] LABS: Basophils % (manual) 0 (0.0-2.0); Blast Cells 0; Metamyelocytes % 0; Myelocytes % 0; Promyelocytes % 0; Reactive Lymphocytes 0
[2019-06-05 16:15] LABS: Albumin 2.1 g/dL (3.4-5.0); Calcium 8.1 mg/dL (8.5-10.1); Potassium 3.6 mmol/L (3.5-5.1)
[2019-06-05 16:18] LABS: BUN/Creatinine Ratio 7.6; Bilirubin, Total 12.9 mg/dL (0.2-1.0); Total Protein 6.5 g/dL (6.4-8.2)
[2019-06-05 16:40] VITALS: BP 132/74
[2019-06-05 17:40] LABS: Band Neutrophils % (manual) 1; Eosinophils % (manual) 2 (0-7); Lymphocytes % (manual) 16 (10.0-50.0); Monocytes % (manual) 11 (0-12)
[2019-06-05] MEDS: ONDANSETRON HCL 4 MG/2 ML VIAL IV PRN (18:08)
[2019-06-05] MEDS: HYDROmorphone HCL 2 MG/ML VL IV PRN (18:09)
--- NOTE | 2019-06-05 19:50 | NUR ---
Opening Shift Note Assumed care of patient, awake and alert. No S/S of distress/SOB. Instructed on POC and to call for assist PRN, patient verbalized understanding, call light within reach, bed alarm on, will continue to monitor for changes Q1hr and PRN.
[2019-06-05 21:53] VITALS: BP 144/69
[2019-06-06] MEDS: InsuLIN REG 1unit/0.01ml Soln (100units/ml) SC SCH ×5 (04:00→20:00)
[2019-06-06] MEDS: ACCU-CHEK COMFORT CURVE STRIP VI SCH ×5 (04:33→20:00)
[2019-06-06] MEDS: SODIUM CHLORIDE 0.9% 1,000 ML IV SCH ×2 (04:33→14:23)
[2019-06-06 04:51] VITALS: BP 154/79
[2019-06-06] MEDS: LEVOTHYROXINE SODIUM 100 MCG TAB PO SCH (05:58)
[2019-06-06 09:00] VITALS: BP 132/69
--- NOTE | 2019-06-06 12:23 | NUR ---
Nutrition Follow-up Notes Wt. 50.6 kg Improved appetite and less abdominal pain today with fair to good tolerance to diet. Continues on FLD at this time with documented PO 75% x 3 days. Receives Ensure Clear TID w/meals and prefers the "clear" forms of supplement for easier digestion. Continues with constipation, likely r/t not eating well and pain medication side effects. Est. Needs (Based on previous assessment): Recalculate PRN Estimated needs based on CBW 46.6 kg-wt gain promotion, history of significant weight loss 2345-6377 kcal (30-35 kcal/kg) 55-69 g protein (1.2-1.5 g/kg) Labs: Glu 135H, AST 46H, Bili 12.9H, ALB 2.1 Skin: Otoniel 22, low risk GI: Last BM x 1 06/01 PES: Unintentional weight loss r/t GI dysfunction, chronic and acute medical conditions aeb pt. with N/V, abdominal pain, PO intake <75% needs, and reported significant, unintentional weight loss 20-25# x 6 months (20%). (ongoing) Plan of care: Monitor GI function, weights, PO intake/tolerance, labs, skin. F/U MR 3-5 days days. Recommendations: 1) Continue full liquid diet and advance as medically able. Continue Ensure Clear TID w/meals for supplementation 3) Consider a MVI QD for supplementation 4) Consider stool softener/Benefiber supplement for the constipation
[2019-06-06 14:13] VITALS: BP 145/81
[2019-06-06 16:12] VITALS: BP 144/76
--- NOTE | 2019-06-06 20:00 | NUR ---
Opening Shift Note Assumed care of patient, awake and alert. Orientated patient to RnDonna. No S/S of distress/SOB. Patient reported 9/10 pain on upper abdomen, nonradiating and pressure. Will medicate per protocol. Instructed on POC and to call for assist PRN, will continue to monitor for changes Q1hr and PRN.
[2019-06-06] MEDS: ONDANSETRON HCL 4 MG/2 ML VIAL IV PRN (20:54)
[2019-06-06] MEDS: HYDROmorphone HCL 2 MG/ML VL IV PRN (20:55)
[2019-06-06 22:00] VITALS: BP 122/65
[2019-06-06] MEDS: TEMAZEPAM 15 MG CAP PO PRN (22:57)
[2019-06-07] MEDS: SODIUM CHLORIDE 0.9% 1,000 ML IV SCH ×2 (00:37→10:15)
[2019-06-07] MEDS: ACCU-CHEK COMFORT CURVE STRIP VI SCH ×4 (04:00→11:45)
[2019-06-07] MEDS: InsuLIN REG 1unit/0.01ml Soln (100units/ml) SC SCH ×4 (04:00→11:45)
[2019-06-07 05:00] VITALS: BP 142/73
[2019-06-07] MEDS: LEVOTHYROXINE SODIUM 100 MCG TAB PO SCH (06:36)
--- NOTE | 2019-06-07 07:31 | NUR ---
REPORT GIVEN TO DAY SHIFT RN.
--- NOTE | 2019-06-07 07:32 | NUR ---
Opening Shift Note Assumed care of patient, awake and alert. No S/S of distress or SOB. Pt denies any pain at this time. Bed in lowest and locked position with side rails up x2 and call light within reach. Instructed on POC and to call for assist PRN, will continue to monitor for changes Q1hr and PRN.
[2019-06-07] MEDS: HYDROmorphone HCL 2 MG/ML VL IV PRN (10:16)
[2019-06-07] MEDS: ONDANSETRON HCL 4 MG/2 ML VIAL IV PRN (10:21)
--- NOTE | 2019-06-07 11:13 | NUR ---
CALLED DR PARKINSON. NEW ORDERS RECEIVED, READ BACK AND VERIFIED.
[2019-06-07 12:02] VITALS: BP 141/93
--- NOTE | 2019-06-07 13:57 | NUR ---
Discharge instructions given as ordered. Encourage to follow up with PMD as instructed. All questions and concerns addressed. Patient verbalized understanding. Medication reconciliation form completed and copy given to patient. No Home medications held in Pharmacy. No needed vaccines. IV removed with catheter intact, pressure dressing applied.
--- NOTE | 2019-06-07 14:20 | NUR ---
Patient taken to vehicle via wheelchair with all personal belongings, accompanied by staff and family member. No distress noted at time of departure.
== END 2019-06-07 14:20 | disposition home or self-care (01) | DRG 435 ==
LOC: WEST WING 10:29
PROVIDERS: ADMIT Internal Medicine Cardiovascular Disease; ATTEND Internal Medicine Cardiovascular Disease
PROC: 0F7D8ZZ Dilation of Pancreatic Duct, Via Natural or Artificial Opening Endoscopic (ICD-10-PCS; 2019-06-01)
PROC: 0F778ZZ Dilation of Common Hepatic Duct, Via Natural or Artificial Opening Endoscopic (ICD-10-PCS; 2019-06-01)
PROC: BF111ZZ Fluoroscopy of Biliary and Pancreatic Ducts using Low Osmolar Contrast (ICD-10-PCS; 2019-06-01)
PROC: 0F798DZ Dilation of Common Bile Duct with Intraluminal Device, Via Natural or Artificial Opening Endoscopic (ICD-10-PCS; principal; 2019-06-01 08:58)
DX: C25.9 Malignant neoplasm of pancreas, unspecified (principal); K83.1 Obstruction of bile duct; M48.54XA Collapsed vertebra, not elsewhere classified, thoracic region, initial encounter for fracture; D64.9 Anemia, unspecified; E87.6 Hypokalemia; E03.9 Hypothyroidism, unspecified; I70.8 Atherosclerosis of other arteries; M06.9 Rheumatoid arthritis, unspecified; Z90.49 Acquired absence of other specified parts of digestive tract; Z87.442 Personal history of urinary calculi; Z88.5 Allergy status to narcotic agent; Z81.1 Family history of alcohol abuse and dependence; Z82.61 Family history of arthritis; Z83.3 Family history of diabetes mellitus; Z82.5 Family history of asthma and other chronic lower respiratory diseases; Z81.8 Family history of other mental and behavioral disorders; Z82.0 Family history of epilepsy and other diseases of the nervous system; Z83.79 Family history of other diseases of the digestive system; Z79.899 Other long term (current) drug therapy
CPT/HCPCS: 36415; 71260; 74018; 74177; 74328; 76000; 80053; 80074; 82378; 82607; 82728; 82746; 82962; 83540; 83550; 83615; 83690; 85007; 85025; 85027; 85610; 86301; 87081; G0378; J1100; J1815; J1885; J2250; J2405; J2704

== ENCOUNTER → 2020-06-23 | Outpatient (CLI) | payer MEDICARE, BC ==
[~2020-06-23] MED LIST changes: +METO5TAB2 PO; +OMEP20TA PO; +PANC3600 PO; +PIO30T PO; +RANI150C11 PO
[2020-06-23 12:08] LABS: BUN/Creatinine Ratio 44.1; Calcium 8.6 mg/dL (8.5-10.1); Potassium 3.2 mmol/L (3.5-5.1)
== END | disposition home or self-care (01) ==
LOC: LAB 10:11
PROVIDERS: ATTEND Internal Medicine
DX: E03.9 Hypothyroidism, unspecified (principal); I10 Essential (primary) hypertension; E11.9 Type 2 diabetes mellitus without complications
CPT/HCPCS: 36415; 80048; 83036; 84439; 84443